=== PATIENT | female | born 1970 | race Two or more races ===

== ENCOUNTER 2019-04-24 08:51 | Emergency (ER) | payer OTHER ==
--- NOTE | 2019-04-24 09:49 | ER ---
Nurse's Notes [facility] Name: Les Hanson Age: 48 yrs Sex: Female : 1970 Arrival Date: 04/24/2019 Time: 08:54 Bed 8 Private MD: Gunner Ramos C Diagnosis: Urinary tract infection, site not specified Presentation: 04/24 09:12 Presenting complaint: Patient states: fever and chills since ,. thinks she may iw have a UTI, feel like she is not emptying her bladder completely, last tylenol at 0300 today. Transition of care: patient was not received from another setting of care. Onset of symptoms was April 22, 2019. Risk Assessment: Do you want to hurt yourself or someone else? Patient reports no desire to harm self or others. Initial Sepsis Screen: Does the patient meet any 2 criteria? No. Patient's initial sepsis screen is negative. Does the patient have a suspected source of infection? No. Patient's initial sepsis screen is negative. Care prior to arrival: None. 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 - Ebola Screening: : Patient negative for fever greater than or equal to 101.5 degrees Fahrenheit, and additional compatible Ebola Virus Disease symptoms Patient denies exposure to infectious person Patient denies travel to an Ebola-affected area in the 21 days before illness onset No symptoms or risks identified at this time. Assessment: 10:00 General: Appears in no apparent distress. well groomed, well developed, well nourished, sg Behavior is calm, cooperative, appropriate for age. Pain: Complains of pain in left mid back and right mid back Quality of pain is described as aching, throbbing. Neuro: Level of Consciousness is awake, alert, obeys commands, Oriented to person, place, time, General Laborer are equal bilaterally Moves all extremities. Gait is steady, Speech is normal. Cardiovascular: Capillary refill is brisk in bilateral fingers Patient's skin is warm and dry. Chest pain is denied. Respiratory: Airway is patent Respiratory effort is even, unlabored, Respiratory pattern is regular, symmetrical. GI: Abdomen is round non-distended. : Reports pain in bilateral flank(s). EENT: No signs and/or symptoms were reported regarding the EENT system. Derm: Skin is intact, is healthy with good turgor, Skin is dry, Skin is normal, Skin temperature is warm. Musculoskeletal: Circulation, motion, and sensation intact. Range of motion: intact in all extremities. Vital Signs: 09:14 BP 128 / 87; Pulse 100; Resp 16; Temp 99.1(TE); Pulse Ox 100% on R/A; Weight 54.43 kg; iw Height 5 ft. 0 in. (152.40 cm); 09:14 Body Mass Index 23.44 (54.43 kg, 152.40 cm) iw ED Course: 08:54 Patient arrived in ED. mr 08:54 Gunner Ramos MD is Private Physician. mr 09:04 Arm band placed on. sg 09:09 Satish Mendez MD is Attending Physician. kdr 09:14 Triage completed. iw 09:30 Shayne Rodarte RN is Primary Nurse. sg 09:48 Gunner Ramos MD is Referral Physician. kdr 10:00 Patient has correct armband on for positive identification. Bed in low position. Call sg light in reach. Pulse ox on. NIBP on. Warm blanket given. Head of bed elevated. 10:00 No provider procedures requiring assistance completed. Patient did not have IV access sg during this emergency room visit. Administered Medications: 09:51 Drug: Pyridium 200 mg Route: PO; sg 09:51 Drug: Cipro 500 mg Route: PO; sg Outcome: 09:48 Discharge ordered by . kdr 09:48 Discharged to home ambulatory, with family. sg 09:48 Condition: good 09:48 Discharge instructions given to patient, Instructed on discharge instructions, follow up and referral plans. safety practices, Demonstrated understanding of instructions, follow-up care, Prescriptions given X 2. 10:00 Patient left the ED. sg Signatures: Shayne Rodarte RN RN Satish Willis MD MD [facility] mr Jacinda Kerr RN RN iw
--- NOTE | 2019-04-24 09:49 | EDPHYS ---
Physician Documentation [facility] Name: Les Hanson Age: 48 yrs Sex: Female : 1970 Arrival Date: 04/24/2019 Time: 08:54 Bed 8 Private MD: Gunner Ramos C ED Physician Satish Mendez HPI: 04/24 16:01 This 48 yrs old Other Female presents to ER via Ambulatory with complaints of Fever. kdr 16:02 The patient presents with urinary symptoms, dysuria, frequency, urgency. Onset: The kdr symptoms/episode began/occurred yesterday. Modifying factors: The symptoms are alleviated by nothing, the symptoms are aggravated by urinating. Associated signs and symptoms: The patient has no apparent associated signs or symptoms, Pertinent positives: dysuria. Severity of symptoms: At their worst the symptoms were mild, in the emergency department the symptoms are unchanged. The patient has experienced similar episodes in the past, a few times. 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 - Ebola Screening: : Patient negative for fever greater than or equal to 101.5 degrees Fahrenheit, and additional compatible Ebola Virus Disease symptoms Patient denies exposure to infectious person Patient denies travel to an Ebola-affected area in the 21 days before illness onset No symptoms or risks identified at this time. ROS: 16:02 Constitutional: Negative for fever, chills, and weight loss, Eyes: Negative for injury, kdr pain, redness, and discharge, Neck: Negative for injury, pain, and swelling, Cardiovascular: Negative for chest pain, palpitations, and edema, Respiratory: Negative for shortness of breath, cough, wheezing, and pleuritic chest pain, Abdomen/GI: Negative for abdominal pain, nausea, vomiting, diarrhea, and constipation, Back: Negative for injury and pain, MS/Extremity: Negative for injury and deformity, Skin: Negative for injury, rash, and discoloration, Neuro: Negative for headache, weakness, numbness, tingling, and seizure activity. Psych: Negative for depression, anxiety, suicide ideation, homicidal ideation, and hallucinations, Allergy/Immunology: Negative for hives, rash, and allergies, Endocrine: Negative for neck swelling, polydipsia, polyuria, polyphagia, and marked weight changes, Hematologic/Lymphatic: Negative for swollen nodes, abnormal bleeding, and unusual bruising. 16:02 : Positive for urinary symptoms, Negative for injury or acute deformity, hematuria, pelvic pain, flank pain, bladder incontinence, foul smelling urine, vaginal bleeding, vaginal discharge, vaginal itching, menstrual abnormality, missed period. Exam: 16:02 Constitutional: This is a well developed, well nourished patient who is awake, alert, kdr and in no acute distress. Head/Face: Normocephalic, atraumatic. Eyes: Pupils equal round and reactive to light, extra-ocular motions intact. Lids and lashes normal. Conjunctiva and sclera are non-icteric and not injected. Cornea within normal limits. Periorbital areas with no swelling, redness, or edema. Neck: Trachea midline, no thyromegaly or masses palpated, and no cervical lymphadenopathy. Supple, full range of motion without nuchal rigidity, or vertebral point tenderness. No Meningismus. Chest/axilla: Normal chest wall appearance and motion. Nontender with no deformity. No lesions are appreciated. Cardiovascular: Regular rate and rhythm with a normal S1 and S2. No gallops, murmurs, or rubs. Normal PMI, no JVD. No pulse deficits. Respiratory: Lungs have equal breath sounds bilaterally, clear to auscultation and percussion. No rales, rhonchi or wheezes noted. No increased work of breathing, no retractions or nasal flaring. Abdomen/GI: Soft, non-tender, with normal bowel sounds. No distension or tympany. No guarding or rebound. No evidence of tenderness throughout. Back: No spinal tenderness. No costovertebral tenderness. Full range of motion. Skin: Warm, dry with normal turgor. Normal color with no rashes, no lesions, and no evidence of cellulitis. MS/ Extremity: Pulses equal, no cyanosis. Neurovascular intact. Full, normal range of motion. Neuro: Awake and alert, GCS 15, oriented to person, place, time, and situation. Cranial nerves II-XII grossly intact. Motor strength 5/5 in all extremities. Sensory grossly intact. Cerebellar exam normal. Normal gait. Psych: Awake, alert, with orientation to person, place and time. Behavior, mood, and affect are within normal limits. Vital Signs: 09:14 BP 128 / 87; Pulse 100; Resp 16; Temp 99.1(TE); Pulse Ox 100% on R/A; Weight 54.43 kg; iw Height 5 ft. 0 in. (152.40 cm); 09:14 Body Mass Index 23.44 (54.43 kg, 152.40 cm) iw MDM: 09:48 Patient medically screened. kdr 16:02 Data reviewed: vital signs, nurses notes, lab test result(s). Counseling: I had a kdr detailed discussion with the patient and/or guardian regarding: the historical points, exam findings, and any diagnostic results supporting the discharge/admit diagnosis, lab results, the need for outpatient follow up. 04/24 09:40 Order name: Urine Dipstick--Ancillary (enter results) ms 04/24 09:40 Order name: Urine --Ancillary (enter results) ms 04/24 09:32 Order name: Urine Dipstick-Ancillary (obtain specimen); Complete Time: 09:33 kdr 04/24 09:32 Order name: Urine Test (obtain specimen); Complete Time: 09:33 kdr Administered Medications: 09:51 Drug: Pyridium 200 mg Route: PO; sg 09:51 Drug: Cipro 500 mg Route: PO; sg Disposition: 04/24/19 09:48 Discharged to Home. Impression: Urinary tract infection, site not specified. - Condition is Stable. - Discharge Instructions: Urinary Tract Infection, Adult, [id number]. - Prescriptions for Pyridium 200 mg Oral Tablet - take 1 tablet by ORAL route every 8 hours for 3 days; 9 tablet. Cipro 500 mg Oral Tablet - take 1 tablet by ORAL route every 12 hours for 7 days; 14 tablet. - Work release form, Family Work Release, Medication Reconciliation Form, Thank You Letter, Antibiotic Education form. - Follow up: Gunner Ramos MD; When: 2 - 3 days; Reason: If symptoms return, Further diagnostic work-up, Recheck today's complaints, Continuance of care, Re-evaluation by your physician. - Problem is new. - Symptoms are unchanged. Signatures: Dispatcher [employer] EDShayne Chisholm RN RN sg Satish Mendez MD MD [facility] Jacinda Kerr RN RN iw Corrections: (The following items were deleted from the chart) 10:00 09:48 04/24/2019 09:48 Discharged to Home. Impression: Urinary tract infection, site sg not specified. Condition is Stable. Forms are Medication Reconciliation Form, Thank You Letter, Antibiotic Education, Prescription Opioid Use. Follow up: A Ramos; When: 2 - 3 days; Reason: If symptoms return, Further diagnostic work-up, Recheck today's complaints, Continuance of care, Re-evaluation by your physician. Problem is new. Symptoms are unchanged. kdr
[2019-04-24] MEDS ORDERED: PHENAZOPYRIDINE 100MG TAB PO ONE (09:52)
[2019-04-24] MEDS ORDERED: CIPROFLOXACIN HCL 500 MG TAB ONE (09:52)
[2019-04-24 10:10] VITALS: BP 128/87; TEMP 99.1; O2SAT 100
[2019-04-24 11:40] LABS: Urine Blood 1+ (NEG); Urine Glucose NEGATIVE (NEG); Urine Protein NEGATIVE (NEG); Urine Specific Gravity 1.015 (1.005-1.030); Urine pH 5.5 (5.0-7.0)
== END 2019-04-24 10:00 | disposition home or self-care (01) ==
LOC: ER 08:51
DX: N39.0 Urinary tract infection, site not specified (principal); Z88.2 Allergy status to sulfonamides
CPT/HCPCS: 81003; 81025; 99283

== ENCOUNTER 2022-05-14 08:32 | Day surgery (SDC) | payer BC ==
[2022-05-09 15:52] LABS: Absolute Lymphocytes (CBC) 1.9 K/uL (0.7-4.9); Lymphocytes % 34.2 % (15.3-44.8); MCV 80.2 fL (80-100); MPV 8.1 fL (7.6-11.3); RBC Red Blood Cell Count 5.11 M/uL (3.86-4.86); Specific Gravity 1.018 (1.005-1.030); Urine Bilirubin NEGATIVE (Negative); Urine Blood Negative (Negative); Urine Clarity Clear (Clear); Urine Color Colorless (Yellow); Urine Glucose NEGATIVE (Negative); Urine Protein NEGATIVE (Negative); Urine Urobilinogen Normal (Normal); Urine pH 5.5 (5.0-7.0)
[2022-05-14] MEDS ORDERED: SCOPOLAMINE HYDROBROMIDE PATCH TD ONE (08:56)
[2022-05-14] MEDS ORDERED: Ringers Lactate 1,000 ML IV ONE ×2 (08:56→11:39)
[2022-05-14 09:15] LABS: Urine Specific Gravity/Preg >1.030 (1.005-1.030)
[2022-05-14] MEDS ORDERED: CELECOXIB 100 MG CAPSULE ONE (09:22)
[2022-05-14] MEDS ORDERED: ACETAMINOPHEN 500 MG TAB ONE (09:23)
[2022-05-14] MEDS ORDERED: FENTANYL CITR 100 MCG/2 ML ONE (09:40)
[2022-05-14] MEDS ORDERED: ROCURONIUM 50 MG/5 ML VIAL IV ONE ×2 (09:40→12:08)
[2022-05-14] MEDS ORDERED: propofoL 200 MG/20 ML VIAL IV ONE (09:40)
[2022-05-14] MEDS ORDERED: MIDAZOLAM HCL 2 MG/2 ML INJ ONE (09:41)
[2022-05-14] MEDS ORDERED: LIDOCAINE 2% MPF 5 ML VIAL ONE (09:41)
[2022-05-14] MEDS ORDERED: ONDANSETRON 4 MG/2 ML VIAL ONE (09:41)
[2022-05-14] MEDS: CEFAZOLIN SODIUM 2 GM/VIAL ONE ×2 (10:02→10:11)
[2022-05-14] MEDS: BUPIVACAINE 0.25% PF 30 ML VIAL ONE ×2 (10:02→10:45)
[2022-05-14] MEDS ORDERED: Phenylephrine HCl 10 MG/ML 1 ML VIAL ONE (11:15)
[2022-05-14] MEDS ORDERED: NEOSTIGMINE 1 MG/ML -5 ML ONE (12:52)
[2022-05-14] MEDS ORDERED: KETOROLAC 30 MG/ML INJ ONE ×2 (12:52→13:10)
[2022-05-14] MEDS ORDERED: GLYCOPYRROLATE 0.2 MG/ML SYR ONE (12:52)
[2022-05-14] MEDS ORDERED: MORPHINE 10 MG/ML VIAL ONE (12:52)
[2022-05-14 13:47] VITALS: O2SAT 100
[2022-05-14 16:18] VITALS: BP 113/67; TEMP 96.5
--- NOTE | 2022-05-15 00:48 | OP ---
Date of Procedure: 05/14/2022 Surgeon: Fátima Reyes MD Commercial Administrator: Carmen Collins. Preoperative Diagnosis: Abnormal uterine bleeding-L. Postoperative Diagnoses: Abnormal uterine bleeding-L and endometriosis, bladder adhesions. Procedures Performed: 1.Total laparoscopic hysterectomy, bilateral salpingectomy, vaginal morcellation for retrieval of sp ecimen. 2.Extensive endometriosis excision which included bladder endometriosis excision, and cystoscopy. O ther peritoneal implants were also excised, most of the time spent on the bladder. 3.Lysis of bladder adhesions from the uterus and the uterus to the anterior abdominal wall likely fr om her section scar. Estimated Blood Loss: Minimal. Specimens: Uterus, tubes, endometriosis, fibroids. Findings: Endometriosis was present extensive in the anterior abdominal wall. Thick black implants were seen very well circumscribed in the anterior wall of the abdomen of the pelvic cavity on the lef t side, then right over the bladder peritoneum inverting into the underlying bladder muscle. Then, l eft lateral wall and then right uterosacral area, left. Uterosacral as well. The left tube and ovari es appeared to be completely unremarkable. There was a solitary implant on the rectum and a few impl ants left on the bladder because removal of the rest seemed like it would require or result in a cyst otomy. Plan is to estate planning counselor her postoperatively and bring her back for another procedure where this ca n be done in a planned way have drainage for the bladder range. Description Of Procedure: After informed consent was verified, the patient was brought to the OR, pl aced in supine fashion on the operating table. General anesthesia was given. She was placed in a do rsal lithotomy position using Davidson stirrups. Abdomen, vulva, vagina, and perineum were prepped and draped in a sterile fashion. 2 g of Ancef were given. SCDs were placed. Time-out was done and the procedure was started. A speculum was placed in the vagina to expose the cervix, deviated to the rig ht side and the anterior lip was grasped with 2 Allis clamps and the uterus was sounded to 12 cm. Ce rvix dilated to at least 14-[place] and the manipulator introduced into the uterus with a medium cup. Caruso was placed to drain the bladder and attached to retrograde filling. A 1 cm supraumbilical skin incision was made with a scalpel and using the open laparoscopy technique, fascia was incised tagged with 0 Vicryl sutures. Peritoneum entered sharply with scissors. Carito introduced after adequate insufflation. Site of entry was checked and was unremarkable. Upper abdom inal surface was unremarkable as well. Patient placed in Trendelenburg. Two 5 ports were placed in the right and left lower quadrants and bladder adhesions were taken down from the anterior abdominal wall to the anterior fundal area where the fibroids were. The adhesions were taken down first in a s harp fashion with scissors as well as the LigaSure. Once this was done and all the peritoneum was se parated, the uterus was released from the anterior abdominal wall. Then a 10 port was placed in the suprapubic area without any problems. Both ovaries were visualized. The ureters were visualized from the pelvic brim to the ureteric tunne l. The uterus was much more deviated to the right and the vessels on the right side were much bigger . The ureter appeared to be closer to that side than on the left side. This started off with the en dometriosis excision on the left lateral wall. Peritoneum was picked up, incised laterally, right ab ove the level of the ureter, dissecting the implant away from the ureter. Then, this was excised wit h the help of the LigaSure. Took down the round ligament on the left side, then opened the anterior broad ligament, and then meso salpinx. Then, with the help of the LigaSure, utero-ovarian ligament and mesosalpinx were taken down , then the anterior leaf of the broad ligament was opened up all the way to the level of the bladder flap. The paravesical space was entered and opened up. The bladder was retracted inferiorly and car eful dissection was performed, which released the bladder and dissected it inferiorly on the anterior vaginal wall. The ureter on the left side was dissected all the way to the level of the ureteric tunnel from the lo wer half of the pelvis. The ureter had to be and lysed from the lateral attachments as wel l as from the medial attachments and visualization was conducted where it dived under the uterine art flash. Then, the peritoneum was incised medial to it and the vessels were exposed, skeletonized, and a ttention directed to the opposite side. The peritoneum was opened superior to the round ligament and the round ligament was taken down with the help of the LigaSure. Then, utero-ovarian ligament was t aken down. Tube was removed to have better visualization. Then rest of the broad ligament and poste rior wall were done. The peritoneum was incised. Then slowly the ureter was dissected all the way f rom the mid pelvic area to the ureteric tunnel. Once the proximity of the ureter was noted to the an terior vaginal wall, I took care to separate this from the lateral wall and the medial leaf of the br oad ligament, isolating it, and pulling the endometriotic implants medially and carefully incising an d finally excising all these implants. Then, the ureter was from the uterosacral and the s car tissue of the endometriosis, so went ahead to isolate the vessels. The vessels were taken down w ith the help of the bipolar and then the LigaSure was used to cut it. The vessel was taken on the ot her side as well. Monopolar hook blade was used to perform an anterior colpotomy and then cardinal l igaments were taken down with the help of the LigaSure as well as bipolar and the incision of the navajo rosacrals were also taken down the LigaSure and circumferential colpotomy was completed. Specimen pu lled out through the vaginal canal, but this was not a good fit. So went over to perform vaginal morcellation with the help of [place] clamps. These were place d on the cervix and gradually one fibroid after the other and then morcellation was performed with th e help of a 10 blade. Suction was performed in the vaginal canal. Vaginal occluder was placed and a djusted appropriately. Specimen handed out for permanent pathology. Instruments were put back in. Thorough irrigation and suction were performed. There was no need for hemostasis. Two angle simple 0 Vicryl sutures were placed in 3 [id number] in the center for c losure of the clock cuff in full thickness from the anterior to posterior wall and the peritoneum inc luded in the posterior aspect as well. The ureter did not appear to have any mechanical or thermal injury to it as it was carefully dissecte d and uterine artery was isolated on the right side as well as the left side, but most on the right s cassandra, there was extensive ureterolysis that had to be done in order for me to excise the endometriosis from the medial peritoneum and also to safeguard the ureter. The anterior peritoneum was then over the bladder picked up and dissection was performed with the hel p of the tip of a Gi grasper. Gradually, the implants were from the underlying bladde r and this was excised in a circumferential fashion. There was 1 area where it was infiltrative and deep into the detrusor. So, this area was left alone and rest of the implants on the anterior abdomi nal wall were excised as well circumferentially. Thorough irrigation and suction performed. No othe r implants were seen other than what was taken on the rectosigmoid single implant, and then those lef t on the bladder. All the trocars were removed under direct vision and the port sites injected with local at the beginning and end of the case. The fascia at the umbilicus closed with the help of 0 Vi cryl sutures, tagged, tied to each other then simple 0 Vicryl suture in the suprapubic fascial area. All skin incisions closed with the help of 3-0 chromic. Caruso removed, vaginal occluder removed, and cystoscopy performed with 30-degree lens, 17-[place] rosas th. Normal saline. The ureters had great jets of urine from both of them from the orifices. Then t here was cystic change with brownish appearance, right above the trigone. Lateral markham as well as t hat close to the dome, could be signs of endometriosis or inflammation. No other abnormalities were seen. Bladder was drained. The patient was recovered from anesthesia. Instrument, needle, and spon ge counts were correct at the end of the case. The patient tolerated the procedure well. She will f ollow up with me in 1 week. The was given all the information about her procedure and so was the patient after she was a little bit awake. She has a 1-week followup. Recommendation would be to estate planning counselor the patient on her endometriosis in the location and possibly bring her back for complete endometriosis excision from th e bladder and bladder repair with anticipated Caruso drainage for at least 7 to 10 days postop. STEVIE/SUBHA Voice ID: [id number] Report ID: [id number]
== END 2022-05-14 16:15 | disposition home or self-care (01) ==
LOC: OR 08:32
PROVIDERS: ATTEND Obstetrics & Gynecology
PROC: 0UT74ZZ Resection of Bilateral Fallopian Tubes, Percutaneous Endoscopic Approach (ICD-10-PCS; 2022-05-14)
PROC: 0WBF4ZZ Excision of Abdominal Wall, Percutaneous Endoscopic Approach (ICD-10-PCS; 2022-05-14)
PROC: 0TBB4ZZ Excision of Bladder, Percutaneous Endoscopic Approach (ICD-10-PCS; 2022-05-14)
PROC: 0UT94ZZ Resection of Uterus, Percutaneous Endoscopic Approach (ICD-10-PCS; principal; 2022-05-14 09:30)
DX: N93.9 Abnormal uterine and vaginal bleeding, unspecified (principal); N80.A0 Endometriosis of bladder, unspecified depth; N80.C19 Endometriosis of the anterior abdominal wall, unspecified depth; D25.9 Leiomyoma of uterus, unspecified
CPT/HCPCS: 85025; 36415; 86900; 86850; 81025; 86901; 88305; 88307; 81003; 58573; 53899; 58662; J2704; J2370; J2001; J2250; J3010; J7120 ×2; J2405; J2710